=== PATIENT | female | born 1990 | race Two or more races ===

== ENCOUNTER 2018-11-20 20:56 | Emergency (ER) | payer MEDICAID ==
[2018-11-20 21:03] VITALS: BP 106/69
--- NOTE | 2018-11-20 21:07 | EDPHY ---
H & P Smoking Status: Never smoked Time Seen by Provider: 11/20/18 21:06 HPI/ROS: CHIEF COMPLAINT: Possible mandibular dislocation HISTORY OF PRESENT ILLNESS: 28-year-old female currently 12 weeks arrives via private vehicle complaining possible mandibular dislocation after she was yawning this evening. She is unable to close her jaw. No prior history of similar. No direct trauma or fall. No intraoral bleeding. No recent illness. No abdominal pain. No vaginal bleeding or discharge. PRIMARY CARE PROVIDER: Yvon Valdez REVIEW OF SYSTEMS: 10 systems reviewed and negative with the exception of the elements mentioned in the history of present illness PAST MEDICAL & SURGICAL HISTORY: currently 12 weeks . SOCIAL HISTORY:Nonsmoker PHYSICAL EXAM (Prior to examination, patient consented to physical exam, hands were washed and my usual and customary physical exam procedures followed) 1) GENERAL: Well-developed, well-nourished, alert and oriented. Appears to be in no acute distress. 2) HEAD: Normocephalic, atraumatic 3) HEENT: Pupils equal, round, reactive to light bilaterally. Sclera anicteric. Nasopharynx, oropharynx, clear, no lesions. Moist Mucous membranes. No intraoral bleeding or lesions. Unable to close jaw. 4) NECK: Full range of motion, no meningeal signs. 5) LUNGS: Clear auscultation bilaterally, no wheezes, no rhonchi, no retractions. 6) HEART: Regular rate and rhythm, no murmur, no heave, no gallop. 7) ABDOMEN: No guarding,, 8) MUSCULOSKELETAL: Moving all extremities, no focal areas of tenderness, no obvious trauma. No peripheral edema or discoloration. 9) BACK: No obvious trauma, no visual or palpable abnormality. 10) SKIN: No rash, no petechiae. 11) Psychiatric: Patient is oriented X 3, there is no agitation. DIFFERENTIAL DIAGNOSIS: In no particular include but limited to mandible fracture, dislocation, subluxation (Vicki,D Sharri) Constitutional: Initial Vital Signs Temperature (C) 36.9 C 11/20/18 21:01 Heart Rate 98 11/20/18 21:01 Respiratory Rate 18 11/20/18 21:01 Blood Pressure 106/69 11/20/18 21:01 O2 Sat (%) 98 11/20/18 21:01 O2 Delivery Mode Room Air Allergies/Adverse Reactions: No Known Allergies Allergy (Unverified 11/20/18 21:00) Home Medications: Medication Instructions Recorded Vitamin Tablet 11/20/18 MDM/Departure - [facility] Procedures: Procedure: Dislocation reduction. . The dislocation of the TMJ was reduced using traction and counter traction technique without complications. Post reduction the patient's notes normal dental line mid, full range of motion of her bilateral TMJ with no malalignment , no intraoral bleeding and feels significant improvement. The procedure was performed by myself. (Librado Cohen) ED Course/Re-evaluation: Patient has a mandibular dislocation which reduced primarily in the emergency department. Recommend minimizing how much she opens her mouth. No imaging at this time. She will be discharged home. She appears improved. Patient feels comfortable being discharged. All questions and concerns addressed by myself. Patient given my usual and customary discharge precautions and instructions regarding their clinical impression. Care of patient under supervision of secondary supervising physician Dr Myrna Guerrero with whom I discussed case. ( Librado Cohen) The patient was evaluated and managed by the Physician Tube Laser Operator. My co- signature indicates that I have reviewed this chart and I agree with the findings and plan of care as documented. I am the secondary supervising physician. (Myrna Guerrero) - Depart Disposition: Home, Routine, Self-Care Clinical Impression: Dislocation of mandible Qualifiers: Encounter type: initial encounter Qualified Code(s): S03.00XA - Dislocation of jaw, unspecified side, initial encounter Condition: Good Instructions: Mandibular Dislocation (ED) Additional Instructions: Do not open your mouth wide, do not yawn widely Referrals: Negrita Escobar, DDS [Doctor of Dental Surgery] - 1-2 days without fail
== END 2018-11-20 21:17 | disposition home or self-care (01) ==
PROC: 0RN Upper Joints, Release (ICD-10-PCS; principal; 2018-11-20)
PROC: 0RN Upper Joints, Release (ICD-10-PCS; principal; 2018-11-20)
DX: S03.03XA Dislocation of jaw, bilateral, initial encounter (principal); Z3A.12 12 weeks gestation of pregnancy